=== PATIENT | female | born 1950 | race Caucasian/White ===

== ENCOUNTER 2024-08-09 16:02 | Emergency (ER) | payer MEDICARE, MEDICAID, SELFPAY ==
[2024-08-09 16:03] VITALS: BP 148/60; PULSE 51; RESP 16; TEMP 36.4; O2SAT 97; BMI 39.1
--- NOTE | 2024-08-09 16:23 | W.ED.FALL ---
Documented by User: CANDY Acevedo 08/09/24 16:44 HPI - Fall General: Chief Complaint: Extremity Injury, Lower Stated Complaint: right ankle/foot pain Time Seen by Provider: 08/09/24 16:25 Source: patient Mode of arrival: wheelchair Limitations: no limitations History of Present Illness: Patient is a 74-year-old female presents to ED today via EMS for evaluation following a fall. Patient states she felt because her legs give out . She states this is an ongoing thing along with generalized weakness. She states has been going on many many months and she has seen her primary care provider for this. She states there is nothing different about today's episode. She does have a cane and walker she is supposed to be using with ambulation to help prevent falls but she does not use this. She was not using it today when she fell. She states when she fell she injured her right ankle/foot. She thinks she may be struck her head. No LOC. She has some discomfort to the right side of her neck as well. MD complaint: fall Onset (ago): hour(s) Fall from: standing Fall witnessed: no Place fall occurred: home Loss of consciousness: None Prolonged down time: no Symptoms prior to fall: none Context: other ( legs gave out ) Location of injury: head and neck Associated symptoms-after fall: Reports difficulty walking (chronically); Denies abdominal pain, chest pain, headache(s), hematuria, lightheadedness or neck pain Related Data Allergies Allergy/AdvReac Type Severity Reaction Status Date / Time No Known Allergies Allergy Verified 08/09/24 16:17 Review of Systems Eyes: Denies: change in vision, blurry vision, photophobia, eye discharge, floaters or seeing flashes ENMT: Denies: throat pain, odynophagia, ear or mastoid pain, ear discharge, nasal discharge, epistaxis or sinus pain Card: Denies: chest pain, palpitations, lightheadedness, syncope or pre-syncope Resp: Denies: dyspnea or pain on inspiration GI: Denies: abdominal pain : Denies: flank pain or hematuria Musc: Reports: extremity pain (R foot) and joint pain (R ankle); Denies: neck pain or back pain Neuro: Reports: difficulty walking (chronically); Denies: headache(s), numbness in extremities, sensory changes or dizziness Physical Exam Const: COMMON NORMALS: no acute distress, average body habitus, patient oriented x3, no limitations, healthy appearing, alert and well nourished GENERAL APPEARANCE: cooperative NUTRITIONAL APPEARANCE: obese ORIENTATION/CONSCIOUSNESS: Yes awake, Yes oriented to person, Yes oriented to place and Yes oriented to time HENMT: COMMON NORMALS: normocephalic, atraumatic and TM's normal bilaterally HEAD & SCALP: normal to inspection, normocephalic and atraumatic; no Bhakta's sign, no hematoma and no raccoon eyes FACE & SINUS: normal facial exam TYMPANIC MEMBRANE: TM's normal bilaterally MOUTH: other (no intraoral injuries noted) Eye: COMMON NORMALS: Equal, round and reactive pupils present and EOMs intact bilaterally GENERAL EYE: appearance normal, both eyes and all related structures and normal light reflex PUPIL: Yes Equal, round and reactive pupils present DIRECT OPHTHALMOSCOPY: Yes normal light reflex Neck/C-Spine: COMMON NORMALS: full ROM GENERAL: Yes normal visual inspection CERVICAL SPINE: Yes cervical ROM normal, No pain with cervical ROM, No Cervical spine tenderness, No step off deformity and No Paracervical muscle tenderness Chest: COMMONS NORMALS: normal inspection of the chest and normal palpation of entire chest wall Resp: COMMON NORMALS: normal respiratory effort and clear to auscultation bilaterally AUSCULTATION: clear to auscultation bilaterally Cardio: COMMON NORMALS: regular rate and regular rhythm RATE: regular rate RHYTHM: regular rhythm GI: COMMON NORMALS: Normal to inspection, nondistended, normoactive bowel sounds present, Soft to palpation, non-tender, No hepatosplenomegaly present and no masses INSPECTION: Yes normal to inspection and No abdominal wall ecchymosis AUSCULTATION: Yes normoactive bowel sounds PALPATION: Yes Soft to palpation and Yes No hepatosplenomegaly present Back/Pelvis: COMMON NORMALS: thoracic and lumbar spine normal to inspection, no thoracic nor lumbar tenderness and thoraco-lumbar ROM normal Extremity: GENERAL: Yes normal exam except as noted RIGHT LOWER EXTREMITY: Yes foot & digits and Yes foot & digits OTHER: bilateral feet are cool to the touch but with intact pulses; she has tenderness throughout R ankle/foot without obvious bony deformity Neuro: CLARISSA COMA SCALE: document GCS findings Clarissa coma scale eye opening: Spontaneous Clarissa coma scale verbal response: Orientated Clarissa coma scale motor response: Obey commands Clarissa coma scale total score: 15 COMMON NORMALS: patient oriented x3, CN's II-XII intact bilaterally, moves all extremities, no focal motor deficits, no sensory deficits noted and gait normal SENSORIUM/ORIENTATION: Yes alert, Yes oriented to person, Yes oriented to place and Yes oriented to time SPEECH: speech normal Skin: COMMON NORMALS: no rashes or lesions noted GENERAL SKIN EXAM: no rashes or lesions noted TRAUMA: no lacerations or abrasions Course Vital Signs: Vital signs: Vital Signs Temperature 97.6 F 08/09/24 16:03 Pulse Rate 56 L 08/09/24 18:54 Respiratory Rate 16 08/09/24 18:54 Blood Pressure 142/71 08/09/24 18:54 Pulse Oximetry 98 08/09/24 18:54 Oxygen Delivery Me thod Room Air 08/09/24 16:03 MDM - Fall Lab Data Radiology Impressions Ankle X-Ray 08/09/24 16:37 IMPRESSION: No acute fracture or malalignment. Cervical Spine CT 08/09/24 16:37 IMPRESSION: No acute findings. Foot X-Ray 08/09/24 16:37 IMPRESSION: 3 mm crescentic osseous structure projecting at the medial base of the 1st metatarsal may represent an avulsion fracture. Otherwise, no acute fracture or malalignment. Correlate with point tenderness. Head CT 08/09/24 16:37 IMPRESSION: No acute intracranial findings. Discharge Plan Discharge Patient Disposition: Home Clinical Impression: Ankle sprain Qualifiers: Encounter type: initial encounter Involved ligament of ankle: unspecified ligament Laterality: right Qualified Code(s): S93.401A - Sprain of unspecified ligament of right ankle, initial encounter Condition: Stable Discharge Orders: Discharge ED (Routine); Ordered 08/09/24 Ordered By: Nigel Ramirez Discharge Diet: Usual diet Discharge Activity: Increase activity as tolerated Patient Instructions: Ankle Sprain (ED) Activity Restrictions/Additional Instructions: Rest, ice, compression, and elevation. Follow-up with your primary care provider as needed. Take Tylenol or ibuprofen for pain relief. Gentle range of motion exercises as tolerated. Return with any new or worsening Sign Out Sign Out Data: Patient Sign Out occurred on 08/09/24 at 17:23. Patient's care was discussed, and care was transferred from CANDY Acevedo to CANDY Arciniega. Coding Level of Care Code ED Combination Operator for Chg Fwd Documented by User: CANDY Arciniega 08/09/24 23:00 HPI - Fall General: Chief Complaint: Extremity Injury, Lower Stated Complaint: right ankle/foot pain Time Seen by Provider: 08/09/24 16:25 Related Data Allergies Allergy/AdvReac Type Severity Reaction Status Date / Time No Known Allergies Allergy Verified 08/09/24 16:17 Physical Exam Neuro: CLARISSA COMA SCALE: document GCS findings Clarissa coma scale total score: 15 Course Vital Signs: Vital signs: Vital Signs Temperature 97.6 F 08/09/24 16:03 Pulse Rate 56 L 08/09/24 18:54 Respiratory Rate 16 08/09/24 18:54 Blood Pressure 142/71 08/09/24 18:54 Pulse Oximetry 98 08/09/24 18:54 Oxygen Delivery Me thod Room Air 08/09/24 16:03 MDM - Fall Medical Decision Making Care of patient transferred me by midlevel provider. Had injured her right foot and ankle, also states she may have hit her head. Her vitals were stable on arrival, did have palpable pulses distally and no acute sign of head injury or trauma. X-ray of right ankle normal. X-ray right foot commented on osseous structure that could resemble avulsion injury, though also did appear chronic. Patient had no pain reported in her foot whatsoever, specifically over the medial first metatarsal where radiology read as a potential avulsion fracture. Imaging of head and neck were also normal. Patient was informed of these findings and expressed relief, is ready to go home at this time with conservative therapies discussed. Reasons to return were also discussed. Lab Data Radiology Impressions Ankle X-Ray 08/09/24 16:37 IMPRESSION: No acute fracture or malalignment. Cervical Spine CT 08/09/24 16:37 IMPRESSION: No acute findings. Foot X-Ray 08/09/24 16:37 IMPRESSION: 3 mm crescentic osseous structure projecting at the medial base of the 1st metatarsal may represent an avulsion fracture. Otherwise, no acute fracture or malalignment. Correlate with point tenderness. Head CT 08/09/24 16:37 IMPRESSION: No acute intracranial findings. All radiology interpretation(s) finalized by discharge Discharge Plan Discharge Patient Disposition: Home Clinical Impression: Ankle sprain Qualifiers: Encounter type: initial encounter Involved ligament of ankle: unspecified ligament Laterality: right Qualified Code(s): S93.401A - Sprain of unspecified ligament of right ankle, initial encounter Condition: Stable Discharge Orders: Discharge ED (Routine); Ordered 08/09/24 Ordered By: Nigel Ramirez Discharge Diet: Usual diet Discharge Activity: Increase activity as tolerated Patient Instructions: Ankle Sprain (ED) Activity Restrictions/Additional Instructions: Rest, ice, compression, and elevation. Follow-up with your primary care provider as needed. Take Tylenol or ibuprofen for pain relief. Gentle range of motion exercises as tolerated. Return with any new or worsening Sign Out Sign Out Data: Patient Sign Out occurred on 08/09/24 at 17:23. Patient's care was discussed, and care was transferred from CANDY Acevedo to CANDY Arciniega. Coding Level of Care Code ED Combination Operator for Gonzalo Mojica
--- NOTE | 2024-08-09 16:37 | CTR_ITS ---
PROCEDURE INFORMATION: Exam: CT Head Without Contrast Exam date and time: 08/09/2024 5:12 PM Age: 74 years old Clinical indication: Injury or trauma; Fall; Blunt trauma (contusions or hematomas) TECHNIQUE: Imaging protocol: Computed tomography of the head without contrast. Radiation optimization: All CT scans at this facility use at least one of these dose optimization techniques: automated exposure control; mA and/or kV adjustment per patient size (includes targeted exams where dose is matched to clinical indication); or iterative reconstruction. COMPARISON: CT cervical spin wo con* [id number] 08/09/2024 5:12 PM RADIATION DOSE METRICS: Total DLP (mGy-cm): 1081.1 FINDINGS: Brain: Periventricular white matter hypodensities likely represent chronic small vessel ischemic changes. No acute intracranial hemorrhage or discrete extra-axial fluid collection. Cerebral ventricles: Mild generalized cortical volume loss with prominence of the ventricles and cortical sulci. Paranasal sinuses: Visualized sinuses are unremarkable. No fluid levels. Mastoid air cells: Visualized mastoid air cells are well aerated. Orbital cavities: Bilateral lens replacements. Bones: Unremarkable. No acute fracture. Soft tissues: Unremarkable. Vasculature: Vascular calcifications along the carotid siphons. CT/CT head wo con* [id number] IMPRESSION: No acute intracranial findings.
--- NOTE | 2024-08-09 16:37 | XRR_ITS ---
PROCEDURE INFORMATION: Exam: XR Right Foot Exam date and time: 08/09/2024 4:45 PM Age: 74 years old Clinical indication: Injury or trauma; Fall; Sprain or strain; Foot; Right TECHNIQUE: Imaging protocol: Radiologic exam of the right foot. Views: 3 or more views. COMPARISON: CR XR ankle RT min 3V* [id number] 08/09/2024 4:45 PM FINDINGS: Bones/joints: 3 mm crescentic osseous structure projecting at the medial base of the 1st metatarsal may represent an avulsion fracture. Otherwise, no acute fracture or malalignment. Corticated osseous structures of the medial head of the 1st metatarsal most suggestive of accessory ossicle. Similar tiny structure projecting of the medial head of the 5th metatarsal suggestive of accessory ossicle. [id number] scattered osteoarthritic changes. Soft tissues: No soft tissue abnormality. XR/XR foot RT min 3V* [id number] IMPRESSION: 3 mm crescentic osseous structure projecting at the medial base of the 1st metatarsal may represent an avulsion fracture. Otherwise, no acute fracture or malalignment. Correlate with point tenderness.
--- NOTE | 2024-08-09 16:37 | CTR_ITS ---
PROCEDURE INFORMATION: Exam: CT Cervical Spine Without Contrast Exam date and time: 08/09/2024 5:12 PM Age: 74 years old Clinical indication: Injury or trauma; Fall; Blunt trauma TECHNIQUE: Imaging protocol: Computed tomography of the cervical spine without contrast. Radiation optimization: All CT scans at this facility use at least one of these dose optimization techniques: automated exposure control; mA and/or kV adjustment per patient size (includes targeted exams where dose is matched to clinical indication); or iterative reconstruction. COMPARISON: CT head wo con* [id number] 08/09/2024 5:12 PM RADIATION DOSE METRICS: Total DLP (mGy-cm): 1054.9 FINDINGS: Bones: No acute fracture. Normal alignment. Straightening of cervical lordosis. Moderate to advanced degenerative disc disease at C5-C6, C6-C7, and C7-T1. Multilevel bilateral facet arthropathy. No significant disc bulge or herniation. No severe spinal canal stenosis. No significant neural foraminal narrowing. Salivary glands: Atrophic appearance of the left submandibular gland. Lungs: Lung apices are normal. Soft tissues: Unremarkable. CT/CT cervical spin wo con* [id number] IMPRESSION: No acute findings.
--- NOTE | 2024-08-09 16:37 | XRR_ITS ---
PROCEDURE INFORMATION: Exam: XR Right Ankle Exam date and time: 08/09/2024 4:45 PM Age: 74 years old Clinical indication: Injury or trauma; Fall; Sprain or strain; Ankle; Right TECHNIQUE: Imaging protocol: Radiologic exam of the right ankle. Views: 3 or more views. COMPARISON: CR XR foot RT min 3V* [id number] 08/09/2024 4:45 PM FINDINGS: Bones/joints: Accounting for suboptimal positioning, No acute fracture or malalignment. Ankle mortise is congruent. Joint spaces are preserved. No worrisome lytic or blastic osseous lesion. No cortical erosion or periosteal reaction. Soft tissues: No appreciable ankle joint effusion. Mild diffuse soft tissue edema of the right lower extremity. XR/XR ankle RT min 3V* [id number] IMPRESSION: No acute fracture or malalignment.
[2024-08-09 18:54] VITALS: BP 142/71; PULSE 56; RESP 16; O2SAT 98
== END 2024-08-09 18:46 | disposition home or self-care (01) ==
PROVIDERS: Emergency Provider Physician Assistant
DX: S93.401A Sprain of unspecified ligament of right ankle, initial encounter (principal); W19.XXXA Unspecified fall, initial encounter
CPT/HCPCS: 70450; 72125; 73610; 73630; 99284